=== PATIENT | female | born 1985 | race Caucasian/White ===

== ENCOUNTER 2024-01-13 14:09 | Outpatient (AMB) | payer BC, SELFPAY ==
--- NOTE | 2024-01-13 14:10 | MHC.PC.OV ---
Vital Signs 01/13/24 14:12 Height 5 ft 2 in Weight 192 lb BMI 35.1 BP 128/84 Blood Pressure Location Rt brachial Position Sitting Pulse 82 Pulse Source Pulse Oximeter Pulse Oximetry (%) 99 Oxygen Delivery Method Room Air Intake Visit Reasons: Establish [facility] not a transfer Allergies No Known Allergies Allergy (Verified 01/13/24 14:13) Tobacco use date assessed: 01/13/24 Dental Screening Dental Screen Date: 01/13/24 Did you have a dental visit in the last 12 months?: Yes Did you have a dental problem in the last 6 months where you did not have access to dental care?: No Was dental information given to patient?: Patient has dentist HPI HPI Comments History of Present Illness Details The patient is a 39 year old female with a past medical history of hypertension presenting to [facility]. HTN: on lisinopril 5mg daily. Started when she had the aneurysm. She is unsure of her baseline off the medication. She was also told at the time to take a baby ASA. Find if she goes of the medication that she sometimes develops visual migraine History of CVA-father. She had screening test which showed aneurysm. This was repaired in 2021. Follow up clear in 2022 so will repeat in 2027 Follows [facility]. She is endorsing 2-3 days of significant PMDD ROS see HPI PHYSICAL EXAM: GENERAL: Alert and oriented x 3. NAD EYES: EOMI. Anicteric. HENT: Moist mucous membranes. No scleral icterus. No cervical lymphadenopathy. LUNGS: Clear to auscultation bilaterally. CARDIOVASCULAR: Regular rate and rhythm. No murmur. No JVD. ABDOMEN: Soft, non-tender +bs EXTREMITIES: No edema. Non-tender. SKIN: No rashes or lesions. Warm. NEUROLOGIC: No focal neurological deficits. CN II-XII grossly intact PSYCHIATRIC: Cooperative. Appropriate mood and affect [facility] Medical History (Updated 01/26/24 @ 10:32 by Lexi Shanks MD) Brain aneurysm Surgical History H/O wrist surgery (~2006) Family History Father Brain aneurysm Hypertension Mother Allergies Maternal Grandmother Lymphoma Social History Household Members: Family Housing: House Alcohol intake: current Alcohol intake frequency: a few times a week Alcohol type: wine Patient Tobacco Use Status: Never used Tobacco e-Cigarette/Vaping Use: Never Used Use of substances other than those prescribed or required for medical reasons: No service: No Current occupational status: employed Current occupation: Teacher Cognitive needs: No Hearing needs: No Vision needs: No Questionnaire PHQ-9 Over the last 2 weeks, how often have you been bothered by any of the following problems? 1. Little interest or pleasure in doing things: not at all 2. Feeling down, depressed, or hopeless: not at all 3. Trouble falling or staying asleep, or sleeping too much: not at all 4. Feeling tired or having little energy: not at all 5. Poor appetite or overeating: not at all 6. Feeling bad about yourself - or that you are a failure or have let yourself or your family down: not at all 7. Trouble concentrating on things, such as reading the newspaper or watching television: not at all 8. Moving or speaking so slowly that other people could have noticed. Or the opposite - being so fidgety or restless that you have been moving around a lot more than usual: not at all 9. Thoughts that you would be better off or of hurting yourself in some way: not at all Total score: 0 Depression Screening Interpretation: Negative (neg) Depression Screening Done: Yes 04190 - PHQ-9 Billing: Yes Source: Developed by Drs. Anup Lyman, Rosy Sheikh, Jermaine Goode and colleagues, with an educational raymundo from [employer]. Thrive Questionnaire Date Thrive assessed: 01/13/24 I am a: Patient What is your living situation today?: I have a steady place to live Within the past 12 months, did the food you bought not last and you didn't have the money to get more?: Never true Within the past 12 months, did you worry whether your food would run out before you got money to buy more?: Never true Do you have trouble paying for medicines?: No Do you have trouble getting transportation to medical appointments?: No Do you have trouble paying your heating and electricity bill?: No Do you have trouble taking care of your child, family member or friend?: No Do you have trouble with day-to-day activities such as bathing, preparing meals, shopping, managing finances, etc.?: No Are you currently unemployed and looking for a job?: No Are you interested in more education?: No THRIVE Score: 0 AUDIT C Alcohol Use Questionnaire (AUDIT-C) 1. How often do you have a drink containing alcohol?: 2-3 times a week 2. How many drinks containing alcohol do you have on a typical day when you are drinking?: 1 or 2 3. How often do you have six or more drinks on one occasion?: Never Total Score: 3 ANGIE-7 AMB Questionnaire ANGIE-7 Date ANGIE - 7 assessed: 01/13/24 Feeling nervous, anxious, or on edge: 0 = Not at all Not being able to stop or control worryin = Not at all Worrying too much about different things: 0 = Not at all Trouble relaxin = Not at all Being so restless that it is hard to sit still: 0 = Not at all Becoming easily annoyed or irritable: 0 = Not at all Feeling afraid as if something awful might happen: 0 = Not at all Total ANGIE-7 score (0-4 normal; 5-9 mild; 10-14 moderate; 15-21 severe): 0 Source: Developed by Drs. Anup Lyman, Rosy Sheikh, Jermaine Goode and colleagues, with an educational raymundo from [employer]. ANGIE-7 Assessment Billing ANGIE-7 Assessment Tool: ANGIE-7 Assessment 67887 Physical exam (Primary Care) Vital Signs: Last Vital Signs Pulse 82 01/13/24 14:12 BP 128/84 01/13/24 14:12 Pulse Ox 99 01/13/24 14:12 Oxygen Delivery Method Room Air 01/13/24 14:12 BMI result Body Mass Index 35.1 Tobacco/Smoking Status: Tobacco use Status Tobacco use date assessed 01/13/24 01/13/24 14:21 Patient Tobacco Use Status Never used Tobacco 01/13/24 14:21 e-Cigarette/Vaping Use Never Used 01/13/24 14:21 PHQ-9: PHQ-9 Score PHQ-9: Total score 0 08/25/24 10:33 Depression Screening Interpretation: Negative (neg) Thrive Assessment: Date of Thrive Assessment Date Thrive assessed 01/13/24 01/13/24 14:21 Assessment and Plan Assessment & Plan (1) Encounter to establish care: Code(s): Z76.89 - Persons encountering health services in other specified circumstances Plan: 39 yo to establish care. past medical, surgical, social and family history reviewed. chart updated (2) PMDD (premenstrual dysphoric disorder): Code(s): F32.81 - Premenstrual dysphoric disorder Plan: Start fluoxetine for 3-5 days during symptoms (3) Brain aneurysm: Code(s): I67.1 - Cerebral aneurysm, nonruptured Plan: see HPI Medications: New lisinopril 5 mg PO DAILY 90 tabs 3RF 90 days fluoxetine 10 mg PO DAILY PRN 30 caps 3RF PMDD Coding Level of Care Code New Pt Level 4 (36874) Diagnoses Encounter to establish care Z76.89 PMDD (premenstrual dysphoric disorder) F32.81 Brain aneurysm I67.1 Additional Codes ANGIE-7 Assessment Billing - ANGIE-7 Assessment Tool: ANGIE-7 Assessment 36245 ([id number])
[2024-01-13 14:12] VITALS: BP 128/84; PULSE 82; O2SAT 99; BMI 35.1
== END 2024-01-13 15:52 | disposition home or self-care (01) ==
PROVIDERS: Visit Provider Internal Medicine
DX: F32.81 Premenstrual dysphoric disorder (principal); I67.1 Cerebral aneurysm, nonruptured; Z76.89 Persons encountering health services in other specified circumstances
CPT/HCPCS: 99204

== ENCOUNTER 2024-10-20 10:30 | Outpatient (AMB) | payer BC, SELFPAY ==
[2024-10-20 10:35] VITALS: BP 132/96; PULSE 104; RESP 14; O2SAT 100; BMI 35.9
--- NOTE | 2024-10-20 10:35 | MHC.PC.OV ---
Vital Signs 10/20/24 10:35 10/20/24 10:44 Height 5 ft 2 in Weight 196 lb 8 oz BMI 35.9 BP 132/96 H 134/84 Blood Pressure Location Rt brachial Lt brachial Position Sitting Sitting Respiration 14 Pulse 104 H Pulse Source Pulse Oximeter Pulse Oximetry (%) 100 Oxygen Delivery Method Room Air Intake Visit Reasons: Blood pressure is high Intake Note: Elevated blood pressure. Discuss difficulty losing weight. Grocery Caddy Required: No Allergies No Known Allergies Allergy (Verified 10/20/24 10:36) Tobacco use date assessed: 10/20/24 Dental Screening Dental Screen Date: 10/20/24 Did you have a dental visit in the last 12 months?: Yes Did you have a dental problem in the last 6 months where you did not have access to dental care?: No Was dental information given to patient?: Patient has dentist HPI HPI Comments History of Present Illness Details The patient is a 39 year old female with a past medical history of hypertension presenting for follow up HTN: on lisinopril 5mg daily. BP has been running 130s/90s with weight gain. Has tried diet and exercise. Eating calorie restricted diet without significant weight loss. Started when she had the aneurysm. She is unsure of her baseline off the medication. She was also told at the time to take a baby ASA. Find if she goes of the medication that she sometimes develops visual migraine History of CVA-father. She had screening test which showed aneurysm. This was repaired in 2021. Follow up clear in 2022 so will repeat in 2027 Follows with [facility]. She was endorsing 2-3 days of significant PMDD. The prozac has helped symptoms quite a bit ROS see HPI PHYSICAL EXAM: GENERAL: Alert and oriented x 3. NAD EYES: EOMI. Anicteric. HENT: Moist mucous membranes. No scleral icterus. No cervical lymphadenopathy. LUNGS: Clear to auscultation bilaterally. CARDIOVASCULAR: Regular rate and rhythm. No murmur. No JVD. ABDOMEN: Soft, non-tender +bs EXTREMITIES: No edema. Non-tender. SKIN: No rashes or lesions. Warm. NEUROLOGIC: No focal neurological deficits. CN II-XII grossly intact PSYCHIATRIC: Cooperative. Appropriate mood and affect [facility] Medical History Brain aneurysm Surgical History H/O wrist surgery (~2006) Family History Father Brain aneurysm Hypertension Mother Allergies Maternal Grandmother Lymphoma Social History Household Members: Family Housing: House Alcohol intake: current Alcohol intake frequency: a few times a week Alcohol type: wine Patient Tobacco Use Status: Never used Tobacco e-Cigarette/Vaping Use: Never Used service: No Current occupational status: employed Current occupation: Teacher Current occupational exposures/hazards: No Cognitive needs: No Hearing needs: No Vision needs: No Questionnaire PHQ-9 Over the last 2 weeks, how often have you been bothered by any of the following problems? 1. Little interest or pleasure in doing things: not at all 2. Feeling down, depressed, or hopeless: several days 3. Trouble falling or staying asleep, or sleeping too much: several days 4. Feeling tired or having little energy: several days 5. Poor appetite or overeating: several days 6. Feeling bad about yourself - or that you are a failure or have let yourself or your family down: several days 7. Trouble concentrating on things, such as reading the newspaper or watching television: not at all 8. Moving or speaking so slowly that other people could have noticed. Or the opposite - being so fidgety or restless that you have been moving around a lot more than usual: not at all 9. Thoughts that you would be better off or of hurting yourself in some way: not at all Total score: 5 Depression Screening Interpretation: Positive Depression Screening Follow-up: Declines treatment Depression Screening Done: Yes 08421 - PHQ-9 Billing: Yes Source: Developed by Drs. Anup Lyman, Rosy Sheikh, Jermaine Goode and colleagues, with an educational raymundo from [employer] Thrive Questionnaire Date Thrive assessed: 10/19/24 I am a: Patient What is your living situation today?: I have a steady place to live Within the past 12 months, did the food you bought not last and you didn't have the money to get more?: Never true Within the past 12 months, did you worry whether your food would run out before you got money to buy more?: Never true Do you have trouble paying for medicines?: No Do you have trouble getting transportation to medical appointments?: No Do you have trouble paying your heating and electricity bill?: No Do you have trouble taking care of your child, family member or friend?: No Do you have trouble with day-to-day activities such as bathing, preparing meals, shopping, managing finances, etc.?: No Are you currently unemployed and looking for a job?: No Are you interested in more education?: No Please select the resources that you would like help with: None Currently or been in a relationship where the following occur: No concerns reported THRIVE Score: 0 AUDIT C Alcohol Use Questionnaire (AUDIT-C) 1. How often do you have a drink containing alcohol?: 2-3 times a week 2. How many drinks containing alcohol do you have on a typical day when you are drinking?: 1 or 2 3. How often do you have six or more drinks on one occasion?: Never Total Score: 3 ANGIE-7 AMB Questionnaire ANGIE-7 Date ANGIE - 7 assessed: 10/20/24 Feeling nervous, anxious, or on edge: 0 = Not at all Not being able to stop or control worryin = Not at all Worrying too much about different things: 0 = Not at all Trouble relaxin = Not at all Being so restless that it is hard to sit still: 0 = Not at all Becoming easily annoyed or irritable: 1 = Several days Feeling afraid as if something awful might happen: 0 = Not at all Total ANGIE-7 score (0-4 normal; 5-9 mild; 10-14 moderate; 15-21 severe): 1 Source: Developed by Drs. Anup Lyman, Rosy Sheikh, Jermaine Goode and colleagues, with an educational raymundo from [employer] ANGIE-7 Assessment Billing ANGIE-7 Assessment Tool: ANGIE-7 Assessment 23071 Physical exam (Primary Care) Vital Signs: Last Vital Signs Pulse 104 H 10/20/24 10:35 Resp 14 10/20/24 10:35 BP 134/84 10/20/24 10:44 Pulse Ox 100 10/20/24 10:35 Oxygen Delivery Method Room Air 10/20/24 10:35 BMI result Body Mass Index 35.9 Tobacco/Smoking Status: Tobacco use Status Tobacco use date assessed 10/20/24 10/20/24 10:40 Patient Tobacco Use Status Never used Tobacco 10/20/24 10:47 e-Cigarette/Vaping Use Never Used 10/20/24 10:47 PHQ-9: PHQ-9 Score PHQ-9: Total score 5 10/20/24 10:41 Depression Screening Interpretation: Positive Depression Screening Follow-up: Declines treatment Thrive Assessment: Date of Thrive Assessment Date Thrive assessed 10/19/24 10/20/24 10:40 Currently or been in a relationship where the following occur: No concerns reported Coding Level of Care Code Est Pt Level 4 (56760) Complex EM visit Add On G2211 Diagnoses Primary hypertension I10 Hypertension type: primary hypertension Obesity (BMI 35.0-39.9 without comorbidity) E66.9 PMDD (premenstrual dysphoric disorder) F32.81 Additional Codes ANGIE-7 Assessment Billing - ANGIE-7 Assessment Tool: ANGIE-7 Assessment 01091 ([id number]) PHQ-9 - 36916 - PHQ-9 Billing: Yes ([id number]) Assessment & Plan Assessment & Plan (1) Hypertension: Code(s): I10 - Essential (primary) hypertension Category: Medical Qualifiers: Hypertension type: primary hypertension Qualified Code(s): I10 - Essential (primary) hypertension (2) Obesity (BMI 35.0-39.9 without comorbidity): Code(s): E66.9 - Obesity, unspecified Category: Medical (3) PMDD (premenstrual dysphoric disorder): Code(s): F32.81 - Premenstrual dysphoric disorder Category: Medical Plan 39 year old for for BP follow up Interval history reviewed PMDD is stable on prozac HTN-borderline. Given her h/o aneurysm, obesity and htn GLP 1 agonist would be greatly beneficial to aid weight loss For now will hold BP medication at current dose Orders: Orders Lipid Panel Today E66.9 - Obesity, unspecified, F32.81 - Premenstrual dysphoric disorder, I10 - Essential (primary) hypertension Complete Blood Count Auto Diff Today E66.9 - Obesity, unspecified, F32.81 - Premenstrual dysphoric disorder, I10 - Essential (primary) hypertension Comprehensive Met. Panel Today E66.9 - Obesity, unspecified, F32.81 - Premenstrual dysphoric disorder, I10 - Essential (primary) hypertension TSH reflex Free T4 Today E66.9 - Obesity, unspecified, F32.81 - Premenstrual dysphoric disorder, I10 - Essential (primary) hypertension Hemoglobin A1c Today E66.9 - Obesity, unspecified, F32.81 - Premenstrual dysphoric disorder, I10 - Essential (primary) hypertension Medications: New Zepbound (tirzepatide (weight loss)) for 4 weeks 2.5 mg (0.5 mL) subcut QWEEK 2 mL 1RF NS E66.9 - Obesity, unspecified, I10 - Essential (primary) hypertension
[2024-10-20 10:44] VITALS: BP 134/84
--- OUTSIDE RECORDS SUMMARY | 2024-10-20 11:42 | XMS_ITS | Data Portability ---
Author Organization [facility], Main Office Address [address] [facility] [address] [place] [id number] Care Team Providers Care Cartographic Technician Name Role Phone KADIE BOLIVAR Industrial Controls Technician ANDREW CHISHOLM Plywood Layup Line Core Feeder ARTUR BRIZUELA Primary Care Provider Assessment Encounter Date Assessment Date Assessment LastModified by Organization Details LastModified Time 06/06/2022 06/06/2022 This service was provided using telemedicine. Patient consented to Patient was located in the [facility]. Provider was located in the office. No other persons participated in the telemedicine visit except for the patient unless otherwise indicated here. Total time of visit was minutes. [email or web address] Not available 06/06/2022 14:13:08 08/01/2022 08/01/2022 This service was provided using telemedicine. Patient consented to telephone visit Patient was located in the [facility]. Provider was located in the office. No other persons participated in the telemedicine visit except for the patient unless otherwise indicated here. {{}} Total time of visit was 5 minutes. [email or web address] Not available 08/01/2022 11:26:55 Plan of Treatment Reminders Order Date Submit Date Provider Last Modified By Organization Details Last Modified Time Details Appointments None recorded. Lab lipid panel, serum [facility], [address], [address], 09:45:50 Referral None recorded. Procedures None recorded. Surgeries None recorded. Imaging None recorded. Medication Orders lisinopril 5 mg tablet 2022 023 [facility][id number], [address] [facility], [place], [address], 3 11:28:25 Patient TargetsNo targets recorded. Patient InstructionsNo instructions recorded. Reason for Referral None Reported. Problems Name Problem SNOMED Code Status Onset Date Resolution Date Notes Provider Name and Address Organization Details Recorded Time Screenin g for malignan t neoplasm of cervix Completed 201005/04/2020 ROS Benavides, [facility] 0 13:34:17 Screenin g for malignan t neoplasm of cervix Completed 200912/22/2013 RECORDED 0 2:12PM BY ANASTACIO VALENCIA MA null, [facility] 0 13:34:17 Cyst of scalp 957153441 Active 2016 Maylin Johnson PA-C [address] [facility] [address], [facility] [phone], [facility] 7 13:40:46 Actinic keratosi s 380857088 Active 2019 ROS Benavides, [facility] 0 13:35:45 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 Procedures Surgical History Date Name Laterality Status Provider Name and Address Organization Details Recorded Time 07/31/19 22 Neurosurgery completed Jessica Causey MA [facility] 02/12/2022 15:33:13 10/02/19 20 Date of Last Pap Smear completed Jessica Causey MA [facility] 02/12/2022 15:36:42 05/03/20 07 Orthopedic Surgery completed Jessica Cauesy MA [facility] 02/12/2022 15:33:13 Imaging Results None recorded. Procedure Notes None recorded. Medical Equipment None Reported. Allergies No known drug allergies Medications Name Sig Start Date Stop Date Status Note LastModified by Organization Details LastModified Time aspirin 325 mg tablet TAKE 1 TABLET BY MOUTH EVERY DAY 08/13 completed Not Available Not Available Not Available estradiol 0.1 mg/24 hr semiweekl y transderm al patch 06/12 completed Not Available Not Available Not Available terconazo le 0.8 % vaginal cream 06/12 completed Not Available Not Available Not Available clopidogr el 75 mg tablet TAKE 1 TABLET BY MOUTH EVERY DAY 08/01 completed trial off med Not Available Not Available Not Available oxycodone -acetamin ophen 5 mg-325 mg tablet active Not Available Not Available Not Available polymyxin B sulfate 10,000 unit-trim ethoprim 1 mg/mL eye drops Instill 1 drop 6 times a day by ophthalm ic route for 7 days. 05/04 completed Not Available Not Available Not Available cabergoli ne 0.5 mg tablet active Not Available Not Available Not Available progester one micronize d 200 mg capsule 06/12 completed Not Available Not Available Not Available lisinopri l 5 mg tablet TAKE 1 TABLET BY MOUTH EVERY DAY active given courtesy refill JULY 2023 Not Available Not Available Not Available doxycycli ne hyclate 100 mg tablet active Not Available Not Available Not Available leuprolid e 1 mg/0.2 mL subcutane ous kit active Not Available Not Available Not Available diazepam 5 mg tablet active Not Available Not Available Not Available amoxicill in 875 mg-potass ium clavulana te 125 mg tablet 06/12 completed Not Available Not Available Not Available Adult Low Dose Aspirin 81 mg tablet,de layed release Take 1 tablet every day by oral route. active Not Available Not Available No t Available Vitamin D3 25 mcg (1,000 unit) capsule Take 1 capsule every day by oral route. 10/30 completed Not Available Not Available Not Available Ovidrel 250 mcg/0.5 mL subcutane ous syringe active Not Available Not Available Not Available Prenatabs FA 29 mg-1 mg tablet 10/30 completed Not Available Not Available Not Available Menopur 75 unit subcutane ous solution active Not Available Not Available Not Available Boostrix Tdap 2.5 Lf unit-8 mcg-5 Lf/0.5 mL intramusc ular suspensio n 10/30 completed Not Available Not Available Not Available 10/30 completed Not Available Not Available Not Available Sronyx 0.1 mg-20 mcg tablet Take 1 tablet every day by oral route as directed for 28 days. 02/12 completed Not Available Not Available Not Available hydrochlo rothiazid e 12.5 mg tablet TAKE 1 TABLET BY MOUTH EVERY DAY FOR 30 DAYS active Not Available Not Available No t Available Gonal-F 1,050 unit subcutane ous solution active Not Available Not Available Not Available Cathie Allergy 180 mg tablet Take 1 tablet every day by oral route. active Not Available Not Available No t Available Fluzone Quad (PF) 60 mcg (15 mcg x 4)/0.5 mL IM syringe 05/04 completed Not Available Not Available Not Available Vitals Date Recorded Body height Body mass index (BMI) Body weight Oxygen saturation Oxygen saturation in Arterial blood by Pulse oximetry Heart rate Body temperature Systolic blood pressure Diastolic blood pressure Provider Name and Address Organization Details Last Updated DateTime 2 158.75 cm 30.7 kg/m2 12777.8 g 100 % 100 % 78 /min 98.42 [degF] 125 mm[Hg] 78 mm[Hg] Jessica Causey MA [facility] 2 15:26:50 Date Recorded Body height Provider Name an d Address Organization Details Last Updated DateTime 06/06/2022 158.75 cm RSO Meng [facility] 06/06/2022 14:13:12 Date Recorded Body height Provider Name an d Address Organization Details Last Updated DateTime 08/01/2022 158.75 cm ROS Carey MA [facility] 08/01/2022 11:20:01 Date Recorded Body height Body mass index (BMI) Body weight Heart rate Oxygen saturation Oxygen saturation in Arterial blood by Pulse oximetry Body temperature Systolic blood pressure Diastolic blood pressure Provider Name and Address Organization Details Last Updated DateTime 3 158.75 cm 30.7 kg/m2 96111.5 g 89 /min 98 % 98 % 97.2 [degF] 126 mm[Hg] 85 mm[Hg] Kadie Randhawa MA [facility] 3 16:07:05 Social History Question Answer Notes LastModified by Organizat ion Details LastModified Time Tobacco Smoking Status [facility] 14:43:23 Do You Have An Advance Directive? Yes Signed On 02/04/2015 [email or web address] Information not available 02/12/2022 Is Blood Transfusion Acceptable In An Emergency? Yes Information not available 02/04/2015 What Is Your Level Of Caffeine Consumption? Moderate 2 Cups Of Coffee Daily Information not available 02/04/2015 How Much Tobacco Do You Chew? None Information not available 02/04/2015 What Type Of Diet Are You Following? REGULAR Information not available 02/04/2015 Which Illicit Or Recreational Drugs Have You Used? None Information not available 02/04/2015 Have There Been Any Changes To Your Family Or Social Situation? No [email or web address] Information not available 02/12/2022 Are There Any Guns Present In Your Home? No [email or web address] Information not available 02/12/2022 Live Alone Or With Others? With Others (Bobby) [email or web address] Information not available 02/12/2022 Do You Take Precautions To Prevent Distracted Driving? Yes Uses Bluetooth Information not available 02/04/2015 How Often Do You Need To Have Someone Help You When You Read Instructions, Pamphlets, Or Other Written Material From Your Doctor Or Pharmacy? Never Information not available 02/04/2015 Have You Served In The ? No Information not available 01/01/2017 Have You Or Anyone In Your Household Had Any Of The Following Symptoms In The Last 14 Days: Sore Throat, Cough, Chills, Body Aches For Unknown Reasons, Shortness Of Breath For Unknown Reasons, Loss Of Smell, Loss Of Taste, Fever At Or Greater Than 100 Degrees Fahrenheit? Yes Information not available 05/04/2020 What Was The Date Of Your Most Recent Tobacco Screening? 08/01/2022 [email or web address] Information not available 08/01/2022 How Many Children Do You Have? 2 SON And Daughter [email or web address] Information not available 02/12/2022 Do You Use Protection During Sex? No Information not available 02/04/2015 Do You Use Your Seat Belt Or Car Seat Routinely? Yes [email or web address] Information not available 02/12/2022 Seat Belts Used Routinely Yes Information not available 02/12/2022 Are You Sexually Active? Yes Information not available 02/04/2015 Smoke Alarm In Home Yes [email or web address] Information not available 02/12/2022 Do You Have Smoke And Carbon Monoxide Detectors In Your Home? Yes [email or web address] Information not available 02/12/2022 At What Age Did You Start Smoking Tobacco? 0 Information not available 02/04/2015 Are You Passively Exposed To Smoke? No Information not available 02/04/2015 How Much Tobacco Do You Smoke? No Information not available 02/04/2015 Do You Use Sunscreen Routinely? Yes Information not available 02/04/2015 How Many Years Have You Smoked Tobacco? 0 Information not available 02/04/2015 Sex: Unknown Functional Status Question Answer Note LastModified by Organizat ion Details LastModified Time What is your level of alcohol consumption? Occasional Information not available 01/01/2017 Are you currently employed? Yes Information not available 02/04/2015 Are you able to walk? YESWOREST [email or web address] Information not available 02/12/2022 Are you able to care for yourself? 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 Moderate 2-3 x week Information not available 02/04/2015 Mental Status None recorded. Family History Relationship Description Onset Age of this Age Resolved Age Notes LastModified by Organization Details LastModified Time Paternal Grandfather Alzheimer's disease 76 78 [email or web address] Not available 2014 15:18:32 Father Hypertensive disorder 40 [email or web address] Not available 2014 15:18:32 Father Abdominal aortic aneurysm 59 [email or web address] Not available 02/12 15:13:56 Maternal Grandfather Alzheimer's disease 78 [email or web address] Not available 2014 15:18:32 Mother Seasonal allergic rhinitis [email or web address] Not available 02/12 15:13:56 Paternal Grandmother Essential hypertension [email or web address] Not available 15:13:56 Medical History Condition Response Gout N Other N Kidney Stones N Blood Diseases N Hyperthyroidism N Breast Cancer N Hypothyroidism N Lung Disease N Depression N COPD N Defects or Inherited Disease N Anesthesia Complications N Headaches/Migraines N Anxiety Disorder N Varicose Veins N Obesity N Vision or Eye Problems N Arthritis N Head Injury/Concussion N Infertility N Polyps N Congenital Anomalies N Acid Reflux (GERD) N Cancer N Stroke N ADHD N Endometriosis N High Cholesterol N Liver Disease N Fibromyalgia N Kidney Disease N Heart Problems N Ear or Hearing Problems N Hospitalizations N Thyroid Problems N GI Problems N Acne Y Eating Disorder N Skin Problems N Anemia N Constipation N Bladder Problems N Mental Illness N Diabetes N Ovarian Cancer N Blood Transfusions N Seizures/Epilepsy N Tuberculosis N AIDS/HIV N Congestive Heart Failure (CHF) N Eczema N Abuse/Domestic Violence N Diverticulitis N Asthma N Allergies Y Reflux/GERD N Hepatitis N Pulmonary Embolism N Hypertension N Chicken Pox N Autism Spectrum Disorder (ASD) N Osteoporosis N Gynecological History Statement/Question Response Abnormal Pap N Flow Moderate 08/21/2014 STIs/STDs N HPV Vaccine Y Duration of Flow (days) 5 Age at Menarche 11 Current Control Method BCPs Age at First Child 30 Frequency of Cycle (Q days) 28 Sexually Active? Y Menses Monthly Y Date of Last Pap Smear 10/02/2019 Sexual Problems? N LMP Approximate Desired Control Method BCPs N Obstetrics History GPAL:G 1 P 1 0 0 1 Type Value Full Term 1 Living 1 Total 1 Immunizations Vaccine Type Date Status Note Provider Andrea e and Address Organization Details Recorded Time Tdap 9 completed Not Available [facility] 06/06/2022 14:14:01 COVID-19, mRNA, LNP-S, PF, 30 mcg/0.3 mL dose 1 completed ROS Meng, [facility] 06/12/2021 13:44:54 COVID-19, mRNA, LNP-S, PF, 30 mcg/0.3 mL dose 1 [facility] 13:47:03 Influenza, split virus, quadrivalent , PF 9 completed ROS Babb, [facility] 02/12/2022 15:20:50 Tdap 5 [facility]/12[facility]22 15:32:48 Influenza, split virus, quadrivalent , PF 2 cancelled patient objection Cheryl Parra [facility] 02/16/2022 23:57:06 Past Encounters Encounter ID Performer Location Encounter Start Date Encounter Closed Date Diagnosis/Indication Diagnosis SNOMED-CT Code Diagnosis ICD10 Code Diagnosis Note [id number] Pablito Castro MD Main Office [address] [facility] [address] [place] [address] 02/04/2015 14:36:39 02/04/2015 15:45:24 Adult health examination [id number] Pablito Castro MD Main Office [address] [facility] [address] [place] [address] 05/19/2015 09:07:25 05/23/2015 14:29:23 [id number] Maylin Johnson PA-C Main Office [address] [facility] [address] [place] [address] 10/30/2016 13:24:40 10/30/2016 14:14:40 Cyst of scalp 497613649 L72.9 Pt. was reassured. Will continue observing for change in size. If tender and/or larger w/i a month , will refer to have excised. Mass of po stauricular region 153909321 R22.0 Observe for 1 month . POssible reactive small lymphnode vs . cyst. Apply warm compress lopez 10-15 minutes. Take Aleve 220 mg BID for 5 days with food. [id number] Maylin Johnson PA-C Main Office [address] [address] [place] [address] 01/01/2017 10:04:12 01/01/2017 10:51:48 Adult health examination 707642406 Z00.00 Fatigue 87168479 R53.83 Hyperlipidemia 41374802 E78.5 Cyst of scalp 458682694 L72.9 Pt. was reassured. Will continue observing for change in size. If tender and/or larger w/i a month , will refer to have excised. [id number] Suzy salazar MD Main Office [address] [place] [address] 06/12/2021 13:33:16 06/12/2021 14:39:34 Family history of aneurysm of blood vessel of brain 7060082093 9441705 Z82.49 check mri due to family history, new elevated BP and headaches Elevated blood-pressure reading without diagnosis of hypertension 953078804 R03.0 labs today, BP is elevated for months, will start very low dose hctz and follow closely. Discussed using low salt diet, exercise Insomnia 025368976 G47.0 9 discussed sleep hygeine, use melatonin at night, do no stay in bed awake for more than 20 min, do alterative choice until sleep and then return to bed. Recommened ed counseling for grief, pt agrees to call for appt. Short term followup [id number] Suzy salazar MD Main Office [address] [address] [place] [address] 08/02/2021 13:07:37 08/04/2021 06:22:00 [id number] Suzy salazar MD Main Office [address] [facility] [address] [place] [address] 02/12/2022 15:13:26 02/12/2022 16:29:38 Adult health examination 213943832 Z00.00 Pt is in good general health. Social and family history reviewed. Immunizati ons reviewed, advised annual flu shot, discuss covid booster with neurosurge on. She is up to date on dental and eye providers, mammogram not due yet, UTD on accounts payable bookkeeper Reviewed diet and exercise. History of surgery for cerebral aneurysm 594973350 Z98.890 pt had surgery , follows with Dr Shi neurogurge on in [place] Needs infl uenza immunization 098310981 Z23 Elevated blood-pressure reading without diagnosis of hypertension 346383789 R03.0 Off BP med since surgery, will follow Bp at home monthly, call if elevated, ok today. [id number] Prasanth Slater MD Telehealt h [address] [facility] [address] [place] [address] 06/06/2022 14:11:59 06/06/2022 16:14:27 [id number] Cheryl vazquez NP Main Office [address] [facility] [address] [place] [address] 08/01/2022 10:32:30 08/01/2022 11:35:08 Essential hypertension 64740882 I10 BP with some elevation of 140's over 90's in am, agrees to try low dose lisinopril and will come in for recheck at [facility] on the . Aneurysm o f cerebral artery 578099213 I67.[address] Shi in [place], cleared for all activities [id number] Cheryl vazquez NP Main Office [address] [facility] [address] [place] [place] [address] 08/13/2022 15:58:17 08/14/2022 11:04:46 Essential hypertension 19285801 I10 BP is controlled on present regimen, continue all meds at current dosages. Continue with low salt diet, exercise. Call if any elevations , measures at home daily. Aneurysm o f cerebral artery 697456167 I67.1 Pt had been following with Dr Shi in [place], cleared for all activities , no followup needed, aneurysm treated and cerebral angiogram clear. Anxiety 99963288 F41.9 Situationa l, doing ok and declines meds, considerin g therapy. diagnose with amyloidosi s, on chemo now, affected his heart. Coping ok, has supports in place (mom, family, friends). Kids ok, she say she is doing ok at this time. Health Concerns Section Related Observation LastModified by Organization Detai ls LastModified Time None Recorded Concern Status LastModified by Organization Details LastModified Time None Recorded Advance Directives Directive Y: signed on 02/04/2015 Payers Encounter Date Sequence Insurance Name Policy Number Policy Goldne Covered Member ID Golden Member ID Guarantor Name 08/02/2021 1 [place] [id number] Stephanie C Jaelyn [id number] Stephanie C Jaelyn 02/12/2022 1 [place] [id number] Stephanie C Jaelyn [id number] Stephanie C Jaelyn 06/06/2022 1 [place] [id number] Stephanie C Jaelyn [id number] Stephanie C Jaelyn 08/01/2022 1 [place] [id number] Stephanie C Jaelyn [id number] Stephanie C Jaelyn 08/13/2022 1 [place] [id number] Stephanie C Jaelyn [id number] Stephanie C Jaelyn Notes Date Note Type Note Provider Name and Address Organization Details Recorded Time 08/02/2021 text/html Hospitalization Contact RecordReported bypatient.Follow UpHospital: [facility]; admit date: (Please enter in format 'MM/DD/YYYY') (07/31/2021); date of discharge: (Please enter in format 'MM/DD/YYYY') (08/01/2021); date of contact: (Please enter in format 'MM/DD/YYYY') (08/02/2021); [facility] no HERB with in 48 working hours? yes HCP on file? yes MOLST on file? no Discharge Summary available? yes 36 year old female [facility] non ruptured cerebral aneurysm repair performed by Dr. Fofana. Procedure was uneventful, patient discharge to home after one day hospital stay. No new medication , continue on original regimen , instructed if has constipation use OTC regimen . Patient to follow up with Dr. Fofana as directed 3 to 4 weeks. Cis Coordinator HERB call to patient regarding discharge status , no answer left detailed message on voice mail. Cheryl darnell [facility] 08/04/2021 06:21:59 02/12/2022 text/html Physical age 37. Last year a small cerebral aneurysm was found on MRI screening and pt had this repaired by a specialist in [place], Dr Arreaga, currently on aspirin and plavix, following for some vision changes off plavix Cheryl darnell [facility] 02/17/2022 00:02:52 08/01/2022 text/html TH phone only vi sit for blood pressure elevation. She states BP running 145/93 range at home. Would be interested in lisinopril.HIstory of a small cerebral aneurysm was found on MRI screening and pt had this repaired by a specialist in [place], Dr Arreaga, currently on aspirin only and is aneurysm is resolved per last cerebral angiogram. Currently not on any BP meds, had stopped hctz a year ago. Cheryl darnell [facility] 08/01/2022 11:33:54 08/13/2022 text/html Followup visit f or blood pressure elevation. Started on lisinopril 5 mg. and doing wee on this, no side effects, blood pressure running 120/low 80s at homeHistory of a small cerebral aneurysm was found on MRI screening and pt had this repaired by a specialist in [place], Dr Arreaga, currently on aspirin only for the next 6 month and is aneurysm is resolved per last cerebral angiogram. No followup needs with neurology.Recent family stress, dx with amyloidosis at age 38, following ith hematology , cardiology locally. In chemo for 6 months. Pt states she is ok, looking for a therapist (given some ideas for this). Has good support system. Cheryl darnell, [facility] 08/13/2022 22:44:29 OBGyn Episode No OBEpisode recorded.
--- OUTSIDE RECORDS SUMMARY | 2024-10-20 11:42 | XMS_ITS | Clinical Summary ---
Author Organization [facility] Address [address] [place] [address] Care Team Providers Care Coagulating Bath Operator Name Role Phone AidaCheryl HEAVY EQUIPMENT TECHNICIAN Primary Care Provider + Social History Tobacco Use Types Packs/Day Years Used Date Smoking Tobacco: Never Assessed Comments Unknown Sex and Gender Information Value Date Recorded Sex Assigned at Not on file Legal Sex Female 11:11 AM EST Gender Identity Not on file Sexual Orientation Not on file Plan of Treatment Health Maintenance Due Date Last Done Comments Hepatitis C Virus Screening 1985 HIV Screening 1998 DTaP/Tdap/Td Vaccines (1 - Tdap) 01/10/2004 Hepatitis B Vaccines (1 of 3 - 19+ 3-dose series) 01/10/2004 Pap Smear (Ages 21-65) 2006 COVID-19 Vaccine ( - 2023-2 5 season) 2024 06/05/2021, 09/12/2020, 08/22/2020 Influenza Vaccine 01/01/2025 04/15/2019 HPV Vaccines Aged Out No longer eligi ble based on patient's age to complete this topic Pneumococcal Vaccine: Pediatric (0-5 Years) and At-Risk Patients (6 to 49 Years) Aged Out No longer eligible b ased on patient's age to complete this topic Insurance BLUE CROSS OUT [facility] - HMO Care Teams Coagulating Bath Operator Relationship Specialty Start Date End Date Cheryl Parra APRN [address] [place] [id number] PCP - General 06/27/21
== END 2024-10-20 11:08 | disposition home or self-care (01) ==
LOC: HO.HMCFM 10:31
PROVIDERS: PCP Internal Medicine; Visit Provider Internal Medicine
DX: I10 Essential (primary) hypertension (principal); E66.9 Obesity, unspecified; F32.81 Premenstrual dysphoric disorder; Z68.35 Body mass index [BMI] 35.0-35.9, adult

== ENCOUNTER → 2024-10-20 10:30 | Outpatient (BNVA) | payer BC, SELFPAY | PROVIDERS: PCP Internal Medicine; Visit Provider Internal Medicine | DX: I10 Essential (primary) hypertension (principal); F32.81 Premenstrual dysphoric disorder; E66.9 Obesity, unspecified; Z68.35 Body mass index [BMI] 35.0-35.9, adult | CPT/HCPCS: 96127 ==